=== PATIENT | male | born 1995 | race African-American/Black ===

== ENCOUNTER 2020-01-23 08:41 | Emergency (ER) | payer SELFPAY ==
[~2020-01-23] VITALS: Ht 167.6 cm; Wt 63.0 kg
[2020-01-23 12:30] VITALS: BP 106/68
== END 2020-01-23 12:53 | disposition home or self-care (01) ==
LOC: ER 08:41
DX: Z20.828 Contact with and (suspected) exposure to other viral communicable diseases (principal); B34.9 Viral infection, unspecified; Z87.01 Personal history of pneumonia (recurrent)
CPT/HCPCS: 87420; 87804; 99283